=== PATIENT | female | born 1955 | race Caucasian/White ===

== ENCOUNTER 2018-04-20 10:32 | Outpatient (CLI) | payer MEDICARE | END 2018-04-20 10:33 | disposition home or self-care (01) | LOC: BICMAMMO 10:32 | PROVIDERS: ATTEND Family Medicine | DX: Z12.31 Encounter for screening mammogram for malignant neoplasm of breast (principal); N64.89 Other specified disorders of breast; Z80.3 Family history of malignant neoplasm of breast | CPT/HCPCS: 77063; 77067 ==

== ENCOUNTER 2018-04-27 12:20 | Outpatient (CLI) | payer MEDICARE ==
--- NOTE | 2018-04-27 17:40 | ULT ---
LEFT BREAST ULTRASOUND: Comparison: Mammogram, 04-27-18 and 04-30-18. History: Retroareolar mass like density seen on mammogram. Technique: Multiplanar grayscale and color doppler images were obtained in a targeted ultrasound of t he left breast. FINDINGS: In the retroareolar region of the left breast, there is a tiny anechoic cyst measuring [address] dimension. This is at the 9 o'clock position and may or may not correspond to the mammographic abn ormality. No suspicious shadowing or solid mass is appreciated. IMPRESSION: BIRADS category 3 - probably benign finding. A 6 month follow up mammogram and ultrasound are recomme nded to ensure stability. POS: ANEL
== END 2018-04-27 12:21 | disposition home or self-care (01) ==
LOC: BICMAMMO 12:20
PROVIDERS: ATTEND Family Medicine
DX: R92.2 Inconclusive mammogram (principal); N63.20 Unspecified lump in the left breast, unspecified quadrant; Z80.3 Family history of malignant neoplasm of breast
CPT/HCPCS: 76642; 77065; G0279

== ENCOUNTER 2018-10-11 09:56 | Outpatient (CLI) | payer MEDICARE, MEDICAID ==
--- NOTE | 2018-10-11 10:30 | MMO ---
Left Breast MAMMO Unilat Diag DDI LT+SOTERO. CLINICAL HISTORY: Patient is 63 years old and is seen for diagnostic exam. The patient has no personal history of cancer. VIEWS: The views performed were: left craniocaudal with tomosynthesis; left mediolateral oblique with tomosynthesis; and left mediolateral with tomosynthesis. FILMS COMPARED: The present examination has been compared to prior imaging studies performed at [facility] on 01/23/2015, 06/02/2016, 04/20/2018 and 04/27/2018. MAMMOGRAM FINDINGS: There are scattered fibroglandular densities. Finding 1: There is a stable nodule seen in the sub-areolar region of the left breast. Finding 2: There are stable benign appearing calcifications seen in the left breast. IMPRESSION: FINDING 1: STABLE NODULE IN THE LEFT BREAST IS PROBABLY BENIGN. FOLLOW-UP IN 6 MONTHS IS RECOMMENDED. THE RESULTS OF THIS EXAM WERE SENT TO THE PATIENT. ACR BI-RADS Category 3 - Probably benign finding - short interval follow-up suggested. [facility] will notify the patient of the need for additional imaging services. MAMMOGRAPHY NOTE: 1. A negative mammogram report should not delay a biopsy if a dominant of clinically suspicious mass is present. 2. Approximately 10% to 15% of breast cancers are not detected by mammography. 3. Adenosis and dense breasts may obscure an underlying neoplasm. Reported by: CAPRICE CHERY MD Electonically Signed: [id number]
== END 2018-10-11 09:57 | disposition home or self-care (01) ==
LOC: BICMAMMO 09:56
PROVIDERS: ATTEND Family Medicine
DX: N63.20 Unspecified lump in the left breast, unspecified quadrant (principal)
CPT/HCPCS: 77065; G0279

== ENCOUNTER 2018-11-23 08:34 | Outpatient (CLI) | payer MEDICARE, MEDICAID ==
--- NOTE | 2018-11-23 11:16 | MRI ---
MRI Abdomen W WO Con History: Abdominal pain. Cholecystectomy. Comparison: Ultrasound abdomen September 2018 Findings: There is mild hepatic steatosis with fat fraction of 7.7%. Liver is mildly enlarged. No abnormal enhancing hepatic mass. Spleen is unremarkable as well as the pancreas. Adrenal glands are unremarkable. No hydronephrosis. No abnormal renal enhancing mass. Aortic contour is nonaneurysmal. No dilated loops of large or small bowel. Impression: 1. No abnormality seen within the abdomen. No hepatic mass. 2. Mild hepatic steatosis with fat fraction 7.7%.
== END 2018-11-23 08:35 | disposition home or self-care (01) ==
LOC: BICMRI 08:34
PROVIDERS: ATTEND Internal Medicine Gastroenterology
DX: R10.9 Unspecified abdominal pain (principal); K76.0 Fatty (change of) liver, not elsewhere classified; Z90.49 Acquired absence of other specified parts of digestive tract
CPT/HCPCS: 74183; 82565

== ENCOUNTER 2019-04-17 13:13 | Outpatient (CLI) | payer MEDICARE, MEDICAID ==
--- NOTE | 2019-04-18 10:13 | MMO ---
Bilateral MAMMO Bilat Diag DDI+SOTERO. CLINICAL HISTORY: Patient is 64 years old and is seen for diagnostic exam. The patient has the following family history of breast cancer: maternal aunt, malignant (generic) and paternal aunt, malignant (generic). The patient has no personal history of cancer. VIEWS: The views performed were: bilateral craniocaudal with tomosynthesis; bilateral mediolateral oblique with tomosynthesis; and bilateral mediolateral with tomosynthesis. FILMS COMPARED: The present examination has been compared to prior imaging studies performed at [facility] on 06/02/2016, 04/20/2018, 04/27/2018 and 10/11/2018. This study has been interpreted with the assistance of computer-aided detection. MAMMOGRAM FINDINGS: There are scattered fibroglandular densities. Finding 1: There is a stable equal density nodule with circumscribed margins seen in the anterior of the left breast. Finding 2: There are stable benign appearing calcifications seen in both breasts. There are no suspicious masses, suspicious calcifications, or new areas of architectural distortion. IMPRESSION: THERE IS NO MAMMOGRAPHIC EVIDENCE OF MALIGNANCY. A ROUTINE FOLLOW-UP MAMMOGRAM IN 1 YEAR IS RECOMMENDED. THE RESULTS OF THIS EXAM WERE SENT TO THE PATIENT. ACR BI-RADS Category 2 - Benign finding MAMMOGRAPHY NOTE: 1. A negative mammogram report should not delay a biopsy if a dominant of clinically suspicious mass is present. 2. Approximately 10% to 15% of breast cancers are not detected by mammography. 3. Adenosis and dense breasts may obscure an underlying neoplasm. Reported by: DAVID PARISH MD Electonically Signed: [id number]
== END 2019-04-17 13:14 | disposition home or self-care (01) ==
LOC: BICMAMMO 13:13
PROVIDERS: ATTEND Family Medicine
DX: R92.8 Other abnormal and inconclusive findings on diagnostic imaging of breast (principal)
CPT/HCPCS: 77066; G0279

== ENCOUNTER 2020-03-18 14:37 | Outpatient (CLI) | payer MEDICARE, MEDICAID ==
--- NOTE | 2020-03-18 15:48 | ULT ---
EXAM: US Thyroid STANDARD PROVIDED CLINICAL HISTORY: Thyroid nodules COMPARISON: 05/26/2016 FINDINGS: The right thyroid lobe is enlarged, measuring about 5.8 x 3.4 x 3.5 cm. There is a diffusely inhomoge neous appearance to the thyroid parenchyma with no focal dominant nodule evident. The left thyroid lobe is not visualized, compatible with provided clinical history of prior thyroidec lilia. IMPRESSION: Enlarged and heterogeneous right thyroid lobe, compatible with goiter.
== END 2020-03-18 14:38 | disposition home or self-care (01) ==
LOC: BICULT 14:37
PROVIDERS: ATTEND Family Medicine
DX: E04.9 Nontoxic goiter, unspecified (principal)
CPT/HCPCS: 76536

== ENCOUNTER 2020-04-25 12:39 | Outpatient (CLI) | payer MEDICARE, MEDICAID | END 2020-04-25 12:40 | disposition home or self-care (01) | LOC: BICMAMMO 12:39 | PROVIDERS: ATTEND Family Medicine | DX: Z12.31 Encounter for screening mammogram for malignant neoplasm of breast (principal); Z80.3 Family history of malignant neoplasm of breast | CPT/HCPCS: 77063; 77067 ==

== ENCOUNTER 2020-05-29 13:04 | Outpatient (CLI) | payer MEDICARE, MEDICAID | END 2020-05-29 13:05 | disposition home or self-care (01) | LOC: LABBT 13:04 | PROVIDERS: ATTEND Urology | DX: Z01.818 Encounter for other preprocedural examination (principal); Z20.822 Contact with and (suspected) exposure to COVID-19; E04.1 Nontoxic single thyroid nodule; E01.0 Iodine-deficiency related diffuse (endemic) goiter; R22.1 Localized swelling, mass and lump, neck | CPT/HCPCS: 80048; 85014; 85018; 93005; U0003; U0005; 87635; 93010 ==

== ENCOUNTER 2020-06-03 09:29 | Observation (INO) | payer MEDICARE, MEDICAID ==
[2020-06-02 11:35] VITALS: BMI 31.3
[2020-06-03] MEDS ORDERED: Lidocaine 1% w/Epinephrine 1:100K 20 ML VIAL ONE (11:22)
[2020-06-03] MEDS ORDERED: Fentanyl 100 MCG/2 ML VIAL ONE ×4 (11:59→20:44)
[2020-06-03] MEDS ORDERED: HYDROmorphone 0.5 MG/0.5 ML SYRINGE ONE (12:06)
[2020-06-03] MEDS ORDERED: Dexmedetomidine 200 MCG/2 ML VIAL ONE (12:07)
[2020-06-03] MEDS ORDERED: Lidocaine 1% PF 5 ML VIAL ONE (12:09)
[2020-06-03] MEDS ORDERED: Ondansetron PF 4 MG/2 ML Vial ONE (12:09)
[2020-06-03] MEDS ORDERED: Dexamethasone 20 MG/5 ML VIAL ONE (12:09)
[2020-06-03] MEDS ORDERED: PROPOFOL 200 MG/20 ML VIAL ONE (12:09)
[2020-06-03] MEDS ORDERED: Ketorolac Tromethamine 30 MG/ML VIAL ONE (12:09)
[2020-06-03] MEDS ORDERED: Rocuronium Bromide 10 MG/ML (10ML VIAL) ONE (12:09)
[2020-06-03] MEDS ORDERED: ePHEDrine 50 MG/ML VIAL ONE (12:09)
[2020-06-03] MEDS ORDERED: HYDROmorphone 2 MG/ML VIAL SLOW IVP PRN (13:22)
[2020-06-03] MEDS ORDERED: Promethazine HCl 25 MG/ML VIAL IM PRN (13:22)
[2020-06-03] MEDS ORDERED: PACU-Morphine 4MG/ML VIAL SLOW IVP PRN (13:22)
[2020-06-03] MEDS ORDERED: Promethazine HCl 25 MG/ML VIAL SLOW IVP PRN (13:22)
[2020-06-03] MEDS ORDERED: Ondansetron HCl/PF 4 MG/2 ML Vial IVP PRN (13:22)
[2020-06-03] MEDS ORDERED: HYDROmorphone 2 MG/ML VIAL ONE (16:26)
[2020-06-03 16:49] LABS: Calcium 8.9 mg/dL (7.8-10.44); Magnesium 1.7 mg/dL (1.6-2.6); Phosphorus 3.3 mg/dL (2.3-4.7)
[2020-06-03] MEDS ORDERED: HYDROcodone/Acetaminophen 5/325 mg Tablet PO PRN ×2 (21:28→21:29)
[2020-06-03] MEDS ORDERED: Ondansetron PF 4 MG/2 ML Vial IVP PRN (21:29)
[2020-06-03] MEDS ORDERED: Lactated Ringer's 1,000 ML IV SCH (21:30)
[2020-06-03] MEDS ORDERED: Calcitriol 0.25 MCG CAP PO SCH (21:45)
[2020-06-03] MEDS ORDERED: Famotidine 20 MG TAB PO SCH (21:45)
[2020-06-03] MEDS ORDERED: Docusate 100 MG CAP PO SCH (21:45)
[2020-06-03] MEDS ORDERED: Calcium Carbonate 500 MG TAB PO SCH (21:45)
[2020-06-03] MEDS ORDERED: traMADol HCl 50 MG TAB PO PRN (23:28)
[2020-06-03] MEDS: traMADol HCl 50 MG TAB PO PRN (23:41)
[2020-06-04] MEDS: traMADol HCl 50 MG TAB PO PRN (00:44)
[2020-06-04] MEDS ORDERED: Ketorolac Tromethamine 30 MG/ML VIAL IVP SCH (02:45)
[2020-06-04 05:50] LABS: Calcium 8.8 mg/dL (7.8-10.44); Magnesium 1.7 mg/dL (1.6-2.6); Phosphorus 2.7 mg/dL (2.3-4.7)
[2020-06-04 08:06] VITALS: BP 132/75; TEMP 98
[2020-06-04] MEDS ORDERED: Rosuvastatin 5 MG TAB PO SCH (09:00)
[2020-06-04] MEDS ORDERED: Docusate 100 MG CAP PO SCH (09:00)
[2020-06-04] MEDS ORDERED: Calcitriol 0.25 MCG CAP PO SCH (09:00)
[2020-06-04] MEDS ORDERED: Famotidine 20 MG TAB PO SCH (09:00)
[2020-06-04] MEDS ORDERED: Calcium Carbonate 500 MG TAB PO SCH (09:00)
[2020-06-04] MEDS ORDERED: FLU VACC QS2020-21(65YR UP)/PF 240 MCG/0.7 ML SYRINGE IM ONE (21:00)
== END 2020-06-04 10:00 | disposition home or self-care (01) ==
LOC: SDC 09:29 → SURG A 15:21
PROVIDERS: ADMIT Student in an Organized Health Care Education/Training Program; ATTEND Student in an Organized Health Care Education/Training Program
PROC: 0GTK0ZZ Resection of Thyroid Gland, Open Approach (ICD-10-PCS; principal; 2020-06-03)
DX: E04.2 Nontoxic multinodular goiter (principal); E03.9 Hypothyroidism, unspecified; E78.5 Hyperlipidemia, unspecified; F17.210 Nicotine dependence, cigarettes, uncomplicated; Z79.899 Other long term (current) drug therapy; Z88.5 Allergy status to narcotic agent; Z98.1 Arthrodesis status
CPT/HCPCS: 60260; 82310 ×2; 83735 ×2; 83970 ×2; 84100 ×2; 88307; 96374; 96375; G0378 ×2; 36415; J1100; J1170; J1885; J2405; J2704; J3010; J3490

== ENCOUNTER 2021-04-27 10:12 | Outpatient (CLI) | payer MEDICARE, MEDICAID | END 2021-04-27 10:13 | disposition home or self-care (01) | LOC: BICMAMMO 10:12 | PROVIDERS: ATTEND Family Medicine | DX: Z12.31 Encounter for screening mammogram for malignant neoplasm of breast (principal); Z80.3 Family history of malignant neoplasm of breast | CPT/HCPCS: 77063; 77067 ==

== ENCOUNTER 2021-05-11 10:14 | Outpatient (CLI) | payer MEDICARE, MEDICAID | END 2021-05-11 10:15 | disposition home or self-care (01) | LOC: MRI 10:14 | PROVIDERS: ATTEND Neurological Surgery | DX: M54.50 Low back pain, unspecified (principal); M25.511 Pain in right shoulder; M25.512 Pain in left shoulder; M19.011 Primary osteoarthritis, right shoulder; M19.012 Primary osteoarthritis, left shoulder; M47.816 Spondylosis without myelopathy or radiculopathy, lumbar region; R60.0 Localized edema | CPT/HCPCS: 72100; 72148 ==

== ENCOUNTER 2021-10-27 14:46 | Outpatient (CLI) | payer OTHER, MEDICAID | END 2021-10-27 14:47 | disposition home or self-care (01) | LOC: BICMAMMO 14:46 | PROVIDERS: ATTEND Family Medicine | DX: Z13.820 Encounter for screening for osteoporosis (principal); M81.0 Age-related osteoporosis without current pathological fracture | CPT/HCPCS: 77080 ==

== ENCOUNTER 2022-02-28 18:03 | Emergency (ER) | payer OTHER ==
[2022-02-28] MEDS ORDERED: Ibuprofen 200 MG TAB ONE (20:44)
[2022-02-28] MEDS ORDERED: Diazepam 5 MG TAB ONE (20:44)
== END 2022-02-28 20:50 | disposition home or self-care (01) ==
LOC: ERS 18:03
DX: M54.12 Radiculopathy, cervical region (principal); K21.9 Gastro-esophageal reflux disease without esophagitis; E03.9 Hypothyroidism, unspecified; I10 Essential (primary) hypertension; Z87.891 Personal history of nicotine dependence
CPT/HCPCS: 72020

== ENCOUNTER 2022-04-09 17:40 | Emergency (ER) | payer OTHER ==
[2022-04-09] MEDS ORDERED: Ipratropium/Albuterol 3 ML NEB ONE (18:43)
[2022-04-09] MEDS ORDERED: methylPREDNISolone Sod Succ/PF 125 MG/2 ML VIAL ONE (18:43)
[2022-04-09 18:57] LABS: #Basophils 0.1 thou/uL (0.0-0.2); #Eosinphils 0.2 thou/uL (0.0-0.7); #Lymphocytes 2.5 thou/uL (1.20-3.40); #Neutrophils 11.4 thou/uL (1.40-6.50); %Basophils 0.4 % (0.0-1.0); %Eosinophils 1.2 % (0.0-10.0); %Lymphocytes 16.2 % (21.0-51.0); %Monocytes 6.7 % (0.0-10.0); %Neutrophils 75.4 % (42.0-75.0); Hemoglobin 15.6 g/dL (12.0-16.0); Mean Corpuscular HGB CONC 35.7 g/dL (32.0-36.0); Mean Corpuscular Hemoglobin 32.6 pg (27.0-31.0); Mean Corpuscular Volume 91.2 fl (78.0-98.0); Mean Platelet Volume 8.2 fL (7.4-10.4); Platelet Count 344 10x3/uL (130-400); RBC Distribution Width 12.7 % (11.5-14.5); Red Blood Cell (RBC) Count 4.78 mill/uL (4.20-5.40); White Blood Cell (WBC) Count 15.1 10x3/uL (4.8-10.8)
[2022-04-09 19:21] LABS: ALT (SGPT) 24 U/L (8-55); AST (SGOT) 15 U/L (5-34); Albumin 4.2 g/dL (3.4-4.8); Alkaline Phosphatase 119 U/L (40-110); Anion Gap 16 mmol/L (10-20); BUN (Urea Nitrogen) 19 mg/dL (9.8-20.1); Bilirubin, Total 0.2 mg/dL (0.2-1.2); Calc. Creatinine Clearance 0 mL/min (70-130); Calcium 10.4 mg/dL (7.8-10.44); Carbon Dioxide 24 mmol/L (23-31); Chloride 105 mmol/L (98-107); Estimated GFR 54; Globulin 3.3 g/dL (2.4-3.5); Glucose 121 mg/dL (80-115); Potassium 4.5 mmol/L (3.5-5.1); Protein, Total 7.5 g/dL (5.8-8.1); Sodium 140 mmol/L (136-145)
== END 2022-04-09 20:03 | disposition home or self-care (01) ==
LOC: ERS 17:40
DX: J44.1 Chronic obstructive pulmonary disease with (acute) exacerbation (principal); E03.9 Hypothyroidism, unspecified; K21.9 Gastro-esophageal reflux disease without esophagitis; Z87.891 Personal history of nicotine dependence
CPT/HCPCS: 36415; 71045; 80053; 84484; 85025; 93005; 94760; 96374; J2930; J7620

== ENCOUNTER 2022-06-09 13:02 | Outpatient (CLI) | payer OTHER | END 2022-06-09 13:03 | disposition home or self-care (01) | LOC: BICMAMMO 13:02 | PROVIDERS: ATTEND Family Medicine | DX: Z12.31 Encounter for screening mammogram for malignant neoplasm of breast (principal) | CPT/HCPCS: 77063; 77067 ==

== ENCOUNTER 2023-01-27 17:00 | Outpatient (CLI) | payer OTHER, MEDICAID | END 2023-01-27 17:01 | disposition home or self-care (01) | LOC: SLEEPLAB 17:00 | PROVIDERS: ATTEND Family Medicine | DX: G47.33 Obstructive sleep apnea (adult) (pediatric) (principal); G47.9 Sleep disorder, unspecified; R06.83 Snoring; K21.9 Gastro-esophageal reflux disease without esophagitis; G47.00 Insomnia, unspecified | CPT/HCPCS: 95800 ==

== ENCOUNTER 2023-08-25 14:16 | Outpatient (CLI) | payer OTHER, MEDICAID | END 2023-08-25 14:17 | disposition home or self-care (01) | LOC: BICULT 14:16 | PROVIDERS: ATTEND Family Medicine | DX: S86.012A Strain of left Achilles tendon, initial encounter (principal); R60.0 Localized edema | CPT/HCPCS: 76881 ==

== ENCOUNTER 2023-09-20 12:30 | Outpatient (CLI) | payer OTHER, MEDICAID | END 2023-09-20 12:31 | disposition home or self-care (01) | LOC: BICMRI 12:30 | PROVIDERS: ATTEND Nurse Practitioner Family | DX: S86.012A Strain of left Achilles tendon, initial encounter (principal); M76.62 Achilles tendinitis, left leg ==

== ENCOUNTER 2024-10-05 11:52 | Outpatient (CLI) | payer OTHER, MEDICAID | END 2024-10-05 11:53 | disposition home or self-care (01) | LOC: BICRAD 11:52 | PROVIDERS: ATTEND Orthopaedic Surgery | DX: M54.2 Cervicalgia (principal); Z98.1 Arthrodesis status | CPT/HCPCS: 72040 ==

== ENCOUNTER 2024-10-26 14:08 | Outpatient (CLI) | payer OTHER, MEDICAID | END 2024-10-26 14:09 | disposition home or self-care (01) | LOC: BICCT 14:08 | PROVIDERS: ATTEND Family Medicine | DX: Z12.2 Encounter for screening for malignant neoplasm of respiratory organs (principal); F17.210 Nicotine dependence, cigarettes, uncomplicated | CPT/HCPCS: 71271 ==

== ENCOUNTER 2024-11-28 15:46 | Outpatient (CLI) | payer OTHER, MEDICAID | END 2024-11-28 15:47 | disposition home or self-care (01) | LOC: BICRAD 15:46 | PROVIDERS: ATTEND Orthopaedic Surgery | DX: M54.2 Cervicalgia (principal); Z98.1 Arthrodesis status | CPT/HCPCS: 72040 ==

== ENCOUNTER 2025-02-19 13:53 | Outpatient (CLI) | payer OTHER, MEDICAID | END 2025-02-19 13:54 | disposition home or self-care (01) | LOC: BICRAD 13:53 | PROVIDERS: ATTEND Orthopaedic Surgery | DX: M54.2 Cervicalgia (principal); Z98.1 Arthrodesis status; M50.81 Other cervical disc disorders, high cervical region | CPT/HCPCS: 72040 ==